=== PATIENT | male | born 1930 | race Caucasian/White ===

== ENCOUNTER 2016-12-26 07:30 | Outpatient (CLI) | payer MEDICARE, OTHER ==
[2016-12-26 08:09] LABS: eGFR (African) > 60; eGFR (Non-African) > 60
== END 2016-12-26 07:32 ==
LOC: LAB 07:30
PROVIDERS: ATTEND Internal Medicine Cardiovascular Disease
DX: I10 Essential (primary) hypertension (principal); R06.02 Shortness of breath
CPT/HCPCS: 36415; 80048

== ENCOUNTER 2017-01-30 15:38 | Outpatient (CLI) | payer MEDICARE, OTHER ==
--- NOTE | 2017-01-30 17:16 | Diagnostic Imaging Report ---
[facility] [address] [facility].[address] [address] Report Submission Date: January 30, 2017 4:05:27 PM CDT Patient Study Name: VINEET TY Date: January 30, 2017 3:45:25 PM CDT Modality Type: CR Gender: M Description: UPPER EXTREMITY : 32 Institution: [facility] Physician: ANANT PACHECO 2 views of the right elbow History: PT STATES FALL LAST NIGHT. PAIN ON LATERAL SIDE OF RIGHT ELBOW Lateral view is suboptimal. Extensive degenerative changes are noted at the elbow. There is foreshortening of the radial head Impression: Extensor degenerative changes. Foreshortening of the radial head, differential diagnoses includes degenerative change versus impacted fracture of the radial head. Consider CT of the elbow Electronically signed on January 30, 2017 4:05:27 PM CDT by: Roxi Cheema Findings discussed by Dr. Cheema with RN Ms Ward on 01/30/17 at approx. 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
== END 2017-01-30 15:40 ==
LOC: RAD 15:38
PROVIDERS: ATTEND Physician Assistant
DX: S59.901A Unspecified injury of right elbow, initial encounter (principal); Y92.9 Unspecified place or not applicable; Y93.9 Activity, unspecified
CPT/HCPCS: 73070

== ENCOUNTER 2017-01-31 08:50 | Outpatient (CLI) | payer MEDICARE, OTHER ==
--- NOTE | 2017-01-31 15:15 | Diagnostic Imaging Report ---
ANANT PACHECO [facility] [address] [facility] [address] [place] [address]. [address] Report Submission Date: January 31, 2017 10:19:30 AM CDT Patient Study Name: VINEET TY Date: January 31, 2017 9:25:35 AM CDT Modality Type: CT Gender: M Description: E+1 CT ARM W/O CONTRAST : 32 Institution: [facility] Physician: ANANT PACHECO CT of the right elbow Clinical history: Pain Technique: Helical axial CT of the right elbow was performed with sagittal and coronal reconstructions Findings: There is marked degenerative changes of the elbow with particular spur formation subchondral cyst formation and joint space narrowing. There is calcification of the lateral collateral ligament. No displaced fractures identified. No joint effusion is identified. 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 Calcification of the lateral collateral ligament If symptoms persist consider MRI Electronically signed on January 31, 2017 10:19:30 AM CDT by: Liborio PEREZ
== END 2017-01-31 08:52 ==
LOC: SUATTDRO 08:50 → RAD 08:50
PROVIDERS: ATTEND Family Medicine
DX: R93.8 Abnormal findings on diagnostic imaging of other specified body structures (principal); S59.901A Unspecified injury of right elbow, initial encounter; Y92.9 Unspecified place or not applicable; Y93.9 Activity, unspecified
CPT/HCPCS: 73200

== ENCOUNTER 2017-10-10 10:47 | Outpatient (CLI) | payer MEDICARE, OTHER ==
--- NOTE | 2017-10-10 11:59 | Diagnostic Imaging Report ---
HANNAH BAILEY [facility] [address] [facility] [address] 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 Physician: HANNAH BAILEY Examination: PA and lateral chest. History: DYSPNEA ON EXERTION X 1 WEEK, COUGH, COPD, HISTORY OF SMOKING 50 YEARS AGO (Hx) / DYSPNEA ON EXERTION X 1 WEEK (DICOM Hx) / DYSPNEA ON EXERTION X 1 WEEK (Pt comments) Comparison exam: None provided. Findings: PA lateral chest demonstrate a normal cardiac and mediastinal silhouette. Vascular calcifications involving the aortic arch. Chronic appearing interstitial changes. No focal infiltrate. No blunting of the costophrenic margins. Left shoulder replacement. Articular degenerative changes. Impression: Chronic interstitial changes. No acute appearing pulmonary process. Electronically signed on Oct 10, 2017 11:44:33 AM LOCKSMITH APPRENTICE by: Wilbert PEREZ
[2017-10-10 17:41] LABS: ADENOVIRUS DNA NEGATIVE (NEGATIVE); BORDETELLA PERTUSSIS DNA NEGATIVE (NEGATIVE); SOURCE: NASOPHARYNGEAL SWAB
== END 2017-10-10 10:50 ==
LOC: LAB 10:47
PROVIDERS: ATTEND Family Medicine
DX: J44.9 Chronic obstructive pulmonary disease, unspecified (principal); R06.09 Other forms of dyspnea
CPT/HCPCS: 36415; 71020; 84484; 87486; 87581; 87633; 87798

== ENCOUNTER 2018-01-23 09:26 | Outpatient (CLI) | payer MEDICARE, OTHER ==
--- NOTE | 2018-01-24 11:04 | Diagnostic Imaging Report ---
HANNAH BAILEY [facility] [address] [facility] [address] [address] Report Submission Date: January 23, 2018 10:13:42 AM CDT Patient Study Name: VINEET TY Date: January 23, 2018 9:33:51 AM CDT Modality Type: DX Gender: M Description: SPINE : 32 Institution: [facility] Physician: HANNAH BAILEY Examination: Plain film lumbar spine History: L-SPINE, FALL ABOUT 3 WEEKS AGO, BILAT LOW BACK PAIN SINCE FALL (Hx) Findings: 3 views of the lumbar spine demonstrate normal height. No anterior compression. Extensive osteophyte formation and disc space narrowing. Curvature to the left. 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 Impression: Extensive degenerative changes. No compression deformity. Electronically signed on January 23, 2018 10:13:42 AM CDT by: Wilbert PEREZ
== END 2018-01-23 09:57 ==
LOC: RAD 09:26
PROVIDERS: ATTEND Family Medicine
DX: M54.5 Low back pain (principal)
CPT/HCPCS: 72100

== ENCOUNTER 2018-05-22 14:25 | Outpatient (CLI) | payer MEDICARE, OTHER ==
[2018-05-22 16:23] LABS: eGFR (Non-African) > 60
[2018-05-22 21:31] LABS: BASO % 0.6 % (0.0-1.5); EOS % 3.5 % (0.0-6.8); LYMPH ABS # 1.74 thou/uL (0.60-4.00); MCH. 28.3 pg (28.0-34.0); MCV 85.5 fL (80.0-100.0); MONOCYTE % 8.5 % (0.0-11.0); MONOCYTE ABS # 0.46 thou/uL (0.00-0.90); PLATELET COUNT 332 thou/uL (130-400)
== END 2018-05-22 14:26 ==
LOC: LAB 14:25
PROVIDERS: ATTEND Family Medicine
DX: I10 Essential (primary) hypertension (principal)
CPT/HCPCS: 36415; 80053; 85025

== ENCOUNTER 2018-06-01 21:22 | Emergency (ER) | payer MEDICARE, OTHER ==
[2018-06-01 21:49] VITALS: BP 190/99
[2018-06-01] MEDS ORDERED: MAGNESIUM CITRATE 296 ML BOTTLE PO ONE (22:51)
--- NOTE | 2018-06-01 22:51 | ED Physician Documentation ---
General Adult - HISTORIAN Historian: patient - HPI Stated Complaint: "I have not had a bowel movement in a week" Chief Complaint: General Adult Additional Information: No bowel movement for a week. Increased flatulence for a week. Decreased appetite for two days, since eating increases his L mid and upper abdominal pain. Used 2/3 Fleet enema today as well as Benefiber and Miralax this am. Denies fever or HX diverticulitis/diverticulosis. No other modifying factors or associated signs. - ROS CONST: no problems, other (felt cold earlier this evening) - PAST HX Past History: COPD Allergies/Adverse Reactions: Allergies Allergy/AdvReac Type Severity Reaction Status Date / Time No Known Drug Allergies Allergy Unverified 09/24/14 08:38 Home Medications: Ambulatory Orders Medication Instructions Recorded Gabapentin 300 mg PO TID 06/01/18 Meloxicam 15 mg PO BID 06/01/18 - SOCIAL HX Smoking History: non-smoker - FAMILY HX Family History: No - VITAL SIGNS Vital Signs: Vital Signs Temp Pulse Resp BP Pulse Ox 97.5 F L 84 16 190/99 95 06/01/18 21:36 06/01/18 21:36 06/01/18 21:36 06/01/18 21:36 06/01/18 21:36 - REVIEWED ASSESSMENTS Nursing Assessment Reviewed: Yes Vitals Reviewed: Yes Progress - Progress Progress: Report Submission Date: Jun 01, 2018 10:42:34 PM CDT Patient Study Name: VINEET TY Date: Jun 01, 2018 10:13:19 PM CDT Modality Type: DX Gender: M Description: ABDOMEN : 32 Institution: [facility] Physician: NADYA ELIZABETH - ER Abdomen series with chest History: Abdominal pain and bloating. No recent bowel movement. Findings: The lungs are clear. Postoperative changes are observed in each shoulder. Heart size is normal. Upright and supine abdomen radiographs reveal a normal to moderate amount of colonic stool. There is no evidence of bowel obstruction or free air. Multilevel lumbar spondylosis and hyperostosis are observed. Atherosclerotic calcifications are present. Impression: Normal to moderate amount of colonic stool. No visible rectal stool. Electronically signed on Jun 01, 2018 10:42:34 PM CDT by: Anthony Nieves ED Results Lab/Radiology - Orders Orders: ED Orders Category Date Time Status ACUTE ABDOMINAL SERIES [ABD SERIES PA CHEST] [RAD] Stat Exams 06/01/18 Taken General Adult Physical Exam - PHYSICAL EXAM GENERAL APPEARANCE: mild distress (concerned) EENT: eye inspection normal, ENT inspection normal NECK: normal inspection, supple RESPIRATORY: no resp distress, breath sounds normal CVS: reg rate & rhythm, heart sounds normal ABDOMEN: soft, no organomegaly, normal bowel sounds, non-tender BACK: normal inspection, no CVA tenderness, other (no vertebral tenderness) SKIN: warm/dry, normal color EXTREMITIES: normal range of motion (gait and stance. AFO right ankle. Uses cane for ambulation) NEURO: CN's nml as tested, motor nml, sensation nml, cognition normal Discharge Clincal Impression: Constipation Qualifiers: Constipation type: unspecified constipation type Qualified Code(s): K59.00 - Constipation, unspecified Referrals: Fran Santos MD [Primary Care Provider] - 2 Days Condition: Good Disposition: 01 HOME, SELF-CARE Decision to Admit: NO Decision Time: 23:00
--- NOTE | 2018-06-01 23:29 | Diagnostic Imaging Report ---
NADYA ELIZABETH [facility] [address] [facility] [address] [address] Report Submission Date: Jun 01, 2018 10:42:34 PM CDT Patient Study Name: VINEET TY Date: Jun 01, 2018 10:13:19 PM CDT Modality Type: DX Gender: M Description: ABDOMEN : 32 Institution: [facility] Physician: NADYA ELIZABETH Abdomen series with chest History: Abdominal pain and bloating. No recent bowel movement. Findings: The lungs are clear. Postoperative changes are observed in each shoulder. Heart size is normal. Upright and supine abdomen radiographs reveal a normal to moderate amount of colonic stool. There is no evidence of bowel obstruction or free air. Multilevel lumbar spondylosis and hyperostosis are observed. Atherosclerotic calcifications are present. Impression: Normal to moderate amount of colonic stool. No visible rectal stool. Electronically signed on Jun 01, 2018 10:42:34 PM CDT by: Anthony PEREZ
== END 2018-06-01 23:20 | disposition home or self-care (01) ==
LOC: ED 21:22
DX: K59.00 Constipation, unspecified (principal)
CPT/HCPCS: 74022; 99282